=== PATIENT | female | born 1995 | race Caucasian/White ===

== ENCOUNTER 2016-08-01 05:35 | Emergency (ER) | payer MEDICARE, MEDICAID ==
[2016-08-01] MEDS ORDERED: IPRATROPIUM/ALBUTEROL (0.5MG/3MG) NEB INH ONE (05:48)
[2016-08-01] MEDS ORDERED: HYDROCODONE/APAP 5/325MG TABLET PO ONE (06:13)
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
[2016-08-01 06:33] LABS: HEMATOCRIT 29.3 % (35.0-47.0); HEMOGLOBIN 8.8 gm/dl (11.6-16.0); MEAN CELL VOLUME 99.3 fl (81-97); MEAN CORPUSCULAR HEMOGLOBIN 29.8 pg (27-33); MEAN PLATELET VOLUME 11.1 fl (7.4-10.4); PLATELET COUNT 234 K/uL (130-400); RED BLOOD COUNT 2.95 M/uL (3.80-5.40); RED CELL DISTRIBUTION WIDTH 17.8 % (11.5-14.5); WHITE BLOOD COUNT W/O DIFF 10.2 K/uL (4.2-12.2)
[2016-08-01] MEDS ORDERED: IPRATROPIUM/ALBUTEROL 4 GM INH INH PRN (06:42)
[2016-08-01 06:45] LABS: ALB/GLOB RATIO 1.1 (1.1-1.8); ANION GAP 21.5 (7-16); BILIRUBIN,TOTAL 0.47 mg/dL (0.2-1.3); CARBON DIOXIDE 24.5 mmol/L (22-30); TOTAL PROTEIN 7.6 gm/dL (6.3-8.2)
[2016-08-01 06:49] LABS: CREATININE 13.8 mg/dL (0.52-1.04)
[2016-08-01] MEDS ORDERED: HUMULIN R 100 UNIT/ML VIAL IV ONE (06:56)
[2016-08-01] MEDS ORDERED: CALCIUM GLUCONATE 100 MG in 0.9 % SODIUM CHLORIDE 100ML 100 ML IV ONE (06:56)
[2016-08-01] MEDS ORDERED: DEXTROSE 50 % IVP 50 ML DISP.SYRIN IVP ONE (06:56)
[2016-08-01] MEDS ORDERED: SPS 15 GM/60 ML PO ONE (07:24)
[2016-08-01] MEDS ORDERED: MORPHINE SULFATE 5 MG/ML PFS IVP ONE (07:29)
== END 2016-08-01 08:21 | disposition short-term general hospital (02) ==
LOC: ER 05:35
DX: I12.0 Hypertensive chronic kidney disease with stage 5 chronic kidney disease or end stage renal disease (principal); F17.210 Nicotine dependence, cigarettes, uncomplicated; E87.5 Hyperkalemia; N18.6 End stage renal disease; Z99.2 Dependence on renal dialysis; J20.9 Acute bronchitis, unspecified; I51.7 Cardiomegaly
CPT/HCPCS: 99285 ×2; 96365; 96375; 83735; 80053; 85027; 71020; 94640; 93005; 93010; J2270

== ENCOUNTER 2016-08-20 17:16 | Emergency (ER) | payer MEDICARE, MEDICAID ==
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
[2016-08-20 17:57] LABS: HEMATOCRIT 25.6 % (35.0-47.0); HEMOGLOBIN 7.7 gm/dl (11.6-16.0); MEAN CORPUSCULAR HGB CONC 30.1 g/dl (32-36); MEAN PLATELET VOLUME 8.8 fl (7.4-10.4); PLATELET COUNT 340 K/uL (130-400); RED BLOOD COUNT 2.64 M/uL (3.80-5.40); RED CELL DISTRIBUTION WIDTH 17.3 % (11.5-14.5); WHITE BLOOD COUNT W/O DIFF 15.2 K/uL (4.2-12.2)
[2016-08-20 18:01] LABS: MEAN CORPUSCULAR HEMOGLOBIN 29.1 pg (27-33)
[2016-08-20 18:09] LABS: ANION GAP 19.2 (7-16); CARBON DIOXIDE 21.8 mmol/L (22-30); CREATININE 12.1 mg/dL (0.52-1.04); INR 1.13; PARTIAL THROMBOPLASTIN TIME 29.6 SECONDS (24.5-39.1); PLATELET ESTIMATE NORMAL (NORMAL); PROTHROMBIN TIME (PATIENT) 12.8 SECONDS (9.5-12.1)
[2016-08-20] MEDS ORDERED: HYDROMORPHONE HCL 1 MG/ML CPJ IVP ONE (19:03)
[2016-08-20] MEDS ORDERED: CEFTRIAXONE SODIUM 1 GM in 0.9 % SODIUM CHLORIDE 100ML 100 ML IVPB ONE (19:26)
[2016-08-20] MEDS ORDERED: IBUPROFEN 600 MG TABLET PO ONE (19:50)
== END 2016-08-20 20:47 | disposition short-term general hospital (02) ==
LOC: ER 17:16
DX: N18.6 End stage renal disease (principal); Z99.2 Dependence on renal dialysis; E87.5 Hyperkalemia; I51.7 Cardiomegaly; L02.415 Cutaneous abscess of right lower limb; D64.9 Anemia, unspecified; M79.661 Pain in right lower leg
CPT/HCPCS: 99285 ×2; 96374; 96375; 83735; 85730; 85610; 80048; 84703; 85027; 93971; 93005; 93010; J1170

== ENCOUNTER 2016-10-16 02:39 | Emergency (ER) | payer MEDICARE, MEDICAID ==
[2016-10-16] MEDS ORDERED: MORPHINE SULFATE 5 MG/ML PFS IVP ONE (03:03)
[2016-10-16 03:11] LABS: BASO % 0.5 % (0-6); EOS % 3.6 % (0-6); GRAN % 74.7 % (47-80); HEMATOCRIT 35.7 % (35.0-47.0); HEMOGLOBIN 11.4 gm/dl (11.6-16.0); MEAN CELL VOLUME 95.5 fl (81-97); MEAN CORPUSCULAR HGB CONC 31.9 g/dl (32-36); MEAN PLATELET VOLUME 10.6 fl (7.4-10.4); MONO % 6.2 % (0-9); PLATELET COUNT 383 K/uL (130-400); RED BLOOD COUNT 3.74 M/uL (3.80-5.40); WHITE BLOOD COUNT W/O DIFF 13.2 K/uL (4.2-12.2)
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
[2016-10-16 03:14] LABS: MEAN CORPUSCULAR HEMOGLOBIN 30.4 pg (27-33)
[2016-10-16 03:28] LABS: ANION GAP 22.6 (7-16); BLOOD UREA NITROGEN 79 mg/dL (7-17); CARBON DIOXIDE 28.4 mmol/L (22-30); CREATINE PHOSPHOKINASE 26 U/L (30-135); GLUCOSE,RANDOM 112 mg/dL (70-110)
[2016-10-16] MEDS ORDERED: HYDROMORPHONE HCL 1 MG/ML CPJ IVP ONE (03:29)
[2016-10-16 03:33] LABS: CREATININE 10.2 mg/dL (0.52-1.04); EST GLOMERULAR FILTRATION RATE 5 ml/min
[2016-10-16 03:41] LABS: CKMB < 0.2 ug/L (0-6); TROPONIN I < 0.012 ng/mL (0.00-0.034)
[2016-10-16] MEDS ORDERED: SPS 15 GM/60 ML PO ONE (03:45)
[2016-10-16] MEDS ORDERED: ALBUTEROL SULFATE (0.083%) 2.5 MG/3 ML NEB INH ONE (03:55)
[2016-10-16] MEDS ORDERED: HUMULIN R 100 UNIT/ML VIAL IV ONE (04:02)
[2016-10-16] MEDS ORDERED: DEXTROSE 50 % IVP 50 ML DISP.SYRIN IVP ONE ×2 (04:02→04:14)
[2016-10-16 04:19] LABS: PARTIAL THROMBOPLASTIN TIME 33.2 SECONDS (24.5-39.1)
[2016-10-16 04:23] LABS: D-DIMER 13.4 mg/L FEU (0-0.59)
--- NOTE | 2016-10-18 09:56 | RADIOLOGY REPORT ---
EXAM: CHEST, TWO VIEWS HISTORY: DIFFICULTY BREATHING. TECHNIQUE: Frontal and lateral views of the chest were obtained. Comparison: 08/01/16 chest. FINDINGS: Stable cardiomegaly. Stable compression deformity of the mid thoracic spine. Tiny bibasilar effusions with minimal left basilar air space opacity. No pneumothorax. IMPRESSION: STABLE CARDIOMEGALY WITH TINY BIBASILAR EFFUSIONS. MINIMAL LEFT BASILAR AIR SPACE OPACITY. JOB NUMBER: [id number] MTDD
== END 2016-10-16 05:54 | disposition short-term general hospital (02) ==
LOC: ER 02:39
DX: R07.9 Chest pain, unspecified (principal); E87.5 Hyperkalemia; Z99.2 Dependence on renal dialysis; R11.0 Nausea; R06.00 Dyspnea, unspecified; Z90.5 Acquired absence of kidney; F17.210 Nicotine dependence, cigarettes, uncomplicated
CPT/HCPCS: 99285 ×2; 82550; 85025; 85730; 82553; 84484; 80048; 84703; 85379; 71020; 94640; 93005; 93010; J1170; J2270; J7613

== ENCOUNTER 2017-07-06 22:25 | Emergency (ER) | payer MEDICARE, MEDICAID ==
[2017-07-06] MEDS ORDERED: HYDROCODONE/APAP 5/325MG TABLET PO ONE (23:30)
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
== END 2017-07-06 23:50 | disposition home or self-care (01) ==
LOC: ER 22:25
DX: B35.3 Tinea pedis (principal); F17.210 Nicotine dependence, cigarettes, uncomplicated
CPT/HCPCS: 99282

== ENCOUNTER 2017-12-12 11:15 | Emergency (ER) | payer MEDICARE, MEDICAID ==
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
== END 2017-12-12 12:43 | disposition home or self-care (01) ==
LOC: ER 11:15
DX: S29.012A Strain of muscle and tendon of back wall of thorax, initial encounter (principal); X58.XXXA Exposure to other specified factors, initial encounter; Z90.5 Acquired absence of kidney; F17.210 Nicotine dependence, cigarettes, uncomplicated
CPT/HCPCS: 99282

== ENCOUNTER 2018-02-18 17:51 | Emergency (ER) | payer MEDICARE, MEDICAID ==
[2018-02-18] MEDS ORDERED: PENICILLIN V POTASSIUM 250 MG TAB PO ONE (18:04)
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
== END 2018-02-18 18:21 | disposition home or self-care (01) ==
LOC: ER 17:51
DX: K13.0 Diseases of lips (principal); R00.0 Tachycardia, unspecified; F17.210 Nicotine dependence, cigarettes, uncomplicated
CPT/HCPCS: 99282

== ENCOUNTER 2019-03-13 17:47 | Emergency (ER) | payer MEDICARE, MEDICAID ==
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
[2019-03-13 18:24] LABS: ABSOLUTE NEUTROPHIL COUNT 5.33; BASO % 0.4 % (0-6); GRAN % 77.9 % (47-80); HEMATOCRIT 33.1 % (35.0-47.0); HEMOGLOBIN 10.7 gm/dl (11.6-16.0); LYMPH % 16.1 % (16-45); MEAN CORPUSCULAR HGB CONC 32.3 g/dl (32-36); MEAN PLATELET VOLUME 11.6 fl (7.4-10.4); MONO % 3.6 % (0-9); PLATELET COUNT 143 K/uL (130-400); RED BLOOD COUNT 2.91 M/uL (3.80-5.40); WHITE BLOOD COUNT W/O DIFF 6.9 K/uL (4.2-12.2)
[2019-03-13 18:31] LABS: MEAN CELL VOLUME 113.7 fl (81-97); MEAN CORPUSCULAR HEMOGLOBIN 36.7 pg (27-33); RED CELL DISTRIBUTION WIDTH 18.4 % (11.5-14.5)
[2019-03-13 18:41] LABS: BILIRUBIN,TOTAL 0.4 mg/dL (0.2-1.0); CREATININE 14.4 mg/dL (0.5-0.9); INFLUENZA A NEGATIVE (NEGATIVE); INFLUENZA B NEGATIVE (NEGATIVE); TOTAL PROTEIN 6.8 g/dL (6.6-8.7)
[2019-03-13 19:00] LABS: ALB/GLOB RATIO 1.6 (1.1-1.8); ALBUMIN 4.2 g/dL (4.0-5.0)
[2019-03-13] MEDS ORDERED: SPS 15 GM/60 ML PO ONE (19:05)
[2019-03-13] MEDS ORDERED: HUMULIN R 100 UNIT/ML VIAL IV ONE (19:05)
[2019-03-13] MEDS ORDERED: CALCIUM GLUCONATE 1,000 MG in 0.9 % SODIUM CHLORIDE 100ML 100 ML IV ONE (19:05)
[2019-03-13] MEDS ORDERED: DEXTROSE 50 % IVP 50 ML DISP.SYRIN IVP ONE (19:05)
[2019-03-13] MEDS ORDERED: ONDANSETRON HCL IV 4 MG/2 ML VIAL IVP PRN (19:07)
--- NOTE | 2019-03-13 19:16 | RADIOLOGY REPORT ---
EXAMINATION: Two View Chest Radiographs EXAM DATE: 03/13/2019 6:44 PM TECHNIQUE: Frontal and lateral views INDICATION: ABEL, h/o dialysis, missed run today COMPARISON: 10/16/2016 ENCOUNTER: Not applicable FINDINGS: Cardiomediastinal structures unremarkable. No pulmonary consolidation or infiltration. No pneumothora x or pleural effusion. IMPRESSION: No acute abnormality Dictated by: Obi Callejas MD on 03/13/2019 7:14 PM. .
== END 2019-03-13 19:50 | disposition short-term general hospital (02) ==
LOC: ER 17:47
DX: I12.0 Hypertensive chronic kidney disease with stage 5 chronic kidney disease or end stage renal disease (principal); N18.6 End stage renal disease; E87.5 Hyperkalemia; R11.2 Nausea with vomiting, unspecified; R06.00 Dyspnea, unspecified; R53.1 Weakness; F17.210 Nicotine dependence, cigarettes, uncomplicated; Z99.2 Dependence on renal dialysis
CPT/HCPCS: 71046; 80053; 85025; 87400; 93005; 93010; 96374; 96375; 99291; J2405